=== PATIENT | male | born 1960 | race Caucasian/White ===

== ENCOUNTER 2021-07-04 18:31 | Emergency (ER) | payer SELFPAY ==
[~2021-07-04] VITALS: Ht 177.8 cm; Wt 90.0 kg
[2021-07-04 18:34] VITALS: BP 138/70
[2021-07-04] MEDS ORDERED: BACITRACIN ZINC OINT UDPKT TOP ONE (21:30)
[2021-07-04] MEDS ORDERED: HYDROCODONE/ACETAMINOPHEN 5/325MG TABLET PO ONE (21:30)
[2021-07-04] MEDS ORDERED: TETANUS AND DIPHTHERIA TOX/PF 0.5ML SYR (ADULT) IM ONE (21:30)
[2021-07-04] MEDS ORDERED: IBUP-2029 MT (23:10)
== END 2021-07-05 00:18 | disposition home or self-care (01) ==
LOC: ER 18:31
DX: S62.102A Fracture of unspecified carpal bone, left wrist, initial encounter for closed fracture (principal); W01.0XXA Fall on same level from slipping, tripping and stumbling without subsequent striking against object, initial encounter; Y93.89 Activity, other specified; Y92.89 Other specified places as the place of occurrence of the external cause; Y99.8 Other external cause status
CPT/HCPCS: 29125; 73070; 73110; 90714; 99284